=== PATIENT | male | born 1935 | race Caucasian/White ===

== ENCOUNTER 2016-08-29 10:40 | Inpatient (IN) | payer MEDICARE, BC ==
[~2016-08-29] VITALS: Ht 180.3 cm; Wt 74.2 kg
[~2016-08-29 10:40] MED LIST: DILT180C59 PO; LOSA100T6 PO; OMEP20CA9 PO; POTA20PA PO; SIMV20TA3 PO; TRIA1TAB3; VIT52OIL3; WARF7.5T6
[2016-08-29] MEDS ORDERED: DILTIAZEM 5 MG/ML, 5ML ONE (11:43)
[2016-08-29] MEDS ORDERED: SODIUM CHLORIDE FLUSH 10ML SYR IVF ONE (12:00)
[2016-08-29] MEDS ORDERED: DILTIAZEM 5 MG/ML, 5ML IV ONE (12:00)
[2016-08-29 12:07] LABS: BLOOD UREA NITROGEN 11 mg/dL (7-18)
[2016-08-29] MEDS ORDERED: RIVA20TA PO (12:22)
[2016-08-29] MEDS ORDERED: viteyes (12:22)
[2016-08-29 12:31] LABS: IS PT STATUS REG ER OR PRE ER? YES
[2016-08-29] MEDS ORDERED: POTASSIUM CHLORIDE 20 MEQ TAB.ER.PRT ONE (12:53)
[2016-08-29] MEDS ORDERED: POTASSIUM CHLORIDE 20 MEQ TAB.ER.PRT PO ONE (13:00)
[2016-08-29] MEDS ORDERED: SODIUM CHLORIDE FLUSH 10ML SYR IVF PRN (14:00)
[2016-08-29 16:00] VITALS: BP 124/85
[2016-08-29] MEDS ORDERED: ONDANSETRON 2MG/ML, 2ML IVPush PRN (17:30)
[2016-08-29] MEDS ORDERED: PROMETHAZINE 25 MG/ML, 1ML IM PRN (17:30)
[2016-08-29] MEDS ORDERED: ACETAMINOPHEN 325 MG TABLET PO PRN (17:30)
[2016-08-29] MEDS ORDERED: DIAZEPAM 2 MG TABLET PO PRN (17:30)
[2016-08-29] MEDS ORDERED: ENOXAPARIN 40 MG/0.4 ML SQ SCH (18:30)
[2016-08-29 18:57] LABS: IS PT STATUS REG ER OR PRE ER? NO
[2016-08-29] MEDS ORDERED: DILTIAZEM HCL 180 MG PO SCH (21:00)
[2016-08-29] MEDS ORDERED: SIMVASTATIN 20 MG TABLET PO SCH (21:00)
[2016-08-29] MEDS ORDERED: DILTIAZEM 90 MG CAP.ER.12H PO SCH (21:00)
[2016-08-29 21:10] VITALS: BP 125/81
[2016-08-29] MEDS: POTASSIUM CHLORIDE 20 MEQ PACKET PO SCH (21:40)
[2016-08-29] MEDS: DILTIAZEM 60 MG CAP.ER.12H PO SCH (22:29)
[2016-08-30 00:03] LABS: IS PT STATUS REG ER OR PRE ER? NO
[2016-08-30 01:58] VITALS: BP 128/80
[2016-08-30 06:37] LABS: ASPARTATE AMINO TRANSFERASE 9 U/L (15-37); BLOOD UREA NITROGEN 18 mg/dL (7-18)
[2016-08-30 07:11] VITALS: BP 122/74
[2016-08-30] MEDS ORDERED: OMEPRAZOLE 20 MG CAPSULE.DR PO SCH ×2 (07:30→09:00)
[2016-08-30] MEDS ORDERED: REGADENOSON 0.4 MG/5 ML SYRINGE ONE (07:52)
[2016-08-30] MEDS ORDERED: POTASSIUM CHLORIDE 20 MEQ TAB.ER.PRT PO SCH (08:00)
[2016-08-30] MEDS ORDERED: TRIAMTERENE-HCTZ 37.5/25 MG TABLET PO SCH (09:00)
[2016-08-30] MEDS ORDERED: RIVAROXABAN 20 MG TABLET PO SCH (09:00)
[2016-08-30 10:09] VITALS: BP 126/77
[2016-08-30] MEDS: DILTIAZEM 60 MG CAP.ER.12H PO SCH (10:10)
[2016-08-30] MEDS: POTASSIUM CHLORIDE 20 MEQ PACKET PO SCH (10:11)
[2016-08-30] MEDS ORDERED: MECL-76 PO (13:46)
[2016-08-30] MEDS ORDERED: METH4TAB2 PO (13:46)
[2016-08-30 14:42] VITALS: BP 113/77
== END 2016-08-30 16:00 | disposition home or self-care (01) | DRG 392 ==
LOC: ED 13:30 → EDIP 13:31 → ED 13:45 → 5SO 15:21 → DCLOUNGE 08-30 15:43
PROVIDERS: ADMIT Internal Medicine; ATTEND Internal Medicine
DX: K21.9 Gastro-esophageal reflux disease without esophagitis (principal); D68.69 Other thrombophilia; I48.2 Chronic atrial fibrillation; E87.6 Hypokalemia; I10 Essential (primary) hypertension; H81.10 Benign paroxysmal vertigo, unspecified ear; E78.5 Hyperlipidemia, unspecified; H83.09 Labyrinthitis, unspecified ear; N40.0 Benign prostatic hyperplasia without lower urinary tract symptoms; Z79.01 Long term (current) use of anticoagulants; Z79.899 Other long term (current) drug therapy
CPT/HCPCS: 36415; 70450; 70551; 71010; 78452; 80048; 80053; 80061; 82040; 83735; 84443; 84484; 85025; 93005; 93017; 93306; 96374; J1650; J2785; A9502; C9898

== ENCOUNTER 2018-09-26 09:45 | Emergency (ER) | payer MEDICARE, BC ==
[~2018-09-26] VITALS: Ht 177.8 cm; Wt 76.0 kg
[~2018-09-26 09:45] MED LIST changes: +LOSA100T14 PO; -LOSA100T6 PO; +MECL-76 PO; +METH4TAB2 PO; -POTA20PA PO; +POTA20PA31 PO; +RIVA20TA PO; +WARF7.5T46; -WARF7.5T6; +viteyes
[2018-09-26 10:38] LABS: BASOPHILS # (AUTO) 0.03 x10^3/uL (0-0.1); BASOPHILS % (AUTO) 1 % (0-1); EOSINOPHILS # (AUTO) 0.13 x10^3/uL (0-0.4); EOSINOPHILS % (AUTO) 2 % (1-7); LYMPHOCYTES # (AUTO) 1.52 x10^3/uL (1-3.4); LYMPHOCYTES % (AUTO) 26 % (22-44); MD NO; MEAN CORPUSCULAR HEMOGLOBIN 30.7 pg (27.5-34.5); MEAN CORPUSCULAR HGB CONC 33.4 g/dL (33.2-36.2); MEAN PLATELET VOLUME 9.2 fL (7.4-10.4); MONOCYTES # (AUTO) 0.57 x10^3/uL (0.2-0.8); MONOCYTES % (AUTO) 10 % (2-9); NEUTROPHILS # (AUTO) 3.69 x10^3/uL (1.8-6.8); NEUTROPHILS % (AUTO) 62 % (42-75); PLATELET COUNT 141 x10^3/uL (130-400); RED BLOOD COUNT 5.07 x10^6/uL (4.38-5.82); RED CELL DISTRIBUTION WIDTH 13.7 % (9.4-14.8)
--- NOTE | 2018-09-26 10:41 | NUR ---
PT RESTING IN GURNEY WITH AT BEDSIDE, NO NEEDS AT THIS TIME. CALL LIGHT WITHIN REACH. AWAITING LAB AND RAD RESULTS
[2018-09-26 10:49] LABS: ALBUMIN 3.4 g/dL (3.4-5.0); ANION GAP 4 mmol/L (5-15); CHLORIDE 108 mmol/L (98-107); CREATININE 0.88 mg/dL (0.7-1.3); INTERNATIONAL NORMALIZED RATIO 1.15 (0.93-1.1)
[2018-09-26 10:54] LABS: MICROSCOPIC INDICATED
[2018-09-26 11:05] LABS: CULTURE INDICATED? YES
--- NOTE | 2018-09-26 11:10 | NUR ---
PT TO CT
[2018-09-26] MEDS ORDERED: OMNIPAQUE 350 MG/ML, 100ML BOTTLE ONE (11:22)
--- NOTE | 2018-09-26 11:46 | NUR ---
PT RESTING IN RCHANDLER, BLANKET PROVIDED. CALL LIGHT WITHIN REACH. PT UP FOR RECHECK
[2018-09-26 12:54] VITALS: BP 168/98
== END 2018-09-26 12:56 | disposition home or self-care (01) ==
LOC: ED 11:50
DX: N20.1 Calculus of ureter (principal); I48.91 Unspecified atrial fibrillation
CPT/HCPCS: 36415; 74177; 80048; 81001; 82040; 85025; 85610; 85730; 87086; 99284; Q9967

== ENCOUNTER 2018-10-12 12:11 | Emergency (ER) | payer MEDICARE, BC ==
[~2018-10-12] VITALS: Ht 180.3 cm; Wt 75.0 kg
--- NOTE | 2018-10-12 12:57 | NUR ---
BLADDER SCAN OF 648ML-PROVIDER MADE AWARE- PLAN TO PLACE INDWELLING PONCE
[2018-10-12] MEDS ORDERED: LIDOCAINE 2%,20 ML JEL.PF.APP MM ONE ×2 (13:00→13:24)
--- NOTE | 2018-10-12 13:05 | NUR ---
COLLEGUE ATTEMPETED CATHERIZATION X 1 W/ 16F UNABLE TO PASS PROSTATE
[2018-10-12 13:20] LABS: BASOPHILS # (AUTO) 0.03 x10^3/uL (0-0.1); BASOPHILS % (AUTO) 1 % (0-1); EOSINOPHILS # (AUTO) 0.15 x10^3/uL (0-0.4); EOSINOPHILS % (AUTO) 2 % (1-7); LYMPHOCYTES # (AUTO) 1.68 x10^3/uL (1-3.4); LYMPHOCYTES % (AUTO) 27 % (22-44); MD NO; MEAN CORPUSCULAR HEMOGLOBIN 31.5 pg (27.5-34.5); MEAN CORPUSCULAR HGB CONC 33.4 g/dL (33.2-36.2); MEAN CORPUSCULAR VOLUME 94.4 fL (81-97); MEAN PLATELET VOLUME 9.1 fL (7.4-10.4); MONOCYTES # (AUTO) 0.52 x10^3/uL (0.2-0.8); MONOCYTES % (AUTO) 8 % (2-9); NEUTROPHILS # (AUTO) 3.88 x10^3/uL (1.8-6.8); NEUTROPHILS % (AUTO) 62 % (42-75); PLATELET COUNT 165 x10^3/uL (130-400); RED BLOOD COUNT 5.28 x10^6/uL (4.38-5.82); RED CELL DISTRIBUTION WIDTH 13.6 % (9.4-14.8)
--- NOTE | 2018-10-12 13:26 | NUR ---
MEDICATED PER EMAAllie W/ TODT
[2018-10-12 13:27] LABS: ALBUMIN 3.7 g/dL (3.4-5.0); ANION GAP 9 mmol/L (5-15); CALCIUM 9.6 mg/dL (8.5-10.1); CHLORIDE 108 mmol/L (98-107); CREATININE 1.06 mg/dL (0.7-1.3)
--- NOTE | 2018-10-12 13:40 | NUR ---
REPLENISHMENT SPECIALIST UNABLE TO INSER 12F COUDE (SIGNIFICANT PROSTATE RESISTANCE). PATIENT QUITE TENSE. REPLENISHMENT SPECIALIST ABORTED ATTEMPT TO ASK PROVIDE FOR PAIN MEDICATION AND REATTEMPT
[2018-10-12] MEDS ORDERED: FENTANYL PF 100 MCG/2ML ONE (13:43)
[2018-10-12] MEDS ORDERED: FENTANYL PF 100 MCG/2ML IVPush PRN ×2 (14:00→14:30)
--- NOTE | 2018-10-12 14:01 | NUR ---
MEDICATED PER EMAR
--- NOTE | 2018-10-12 14:05 | NUR ---
RIGHT PIV PLACED-VSS ON AUTOMATIC CLIPPER (REMAINS ON 5L OXYMASK PRECAUTION D/T NARCOTICS)
--- NOTE | 2018-10-12 14:10 | NUR ---
CLARIFYING PLANT OPERATOR UNABLE TO INSERT 10F PONCE EVEN AFTER MEDICATION TO RELIEVE TENSION. AGAIN COMPLETE OCCLUSION AT ABOUT 75% OF USUAL INSERTION DEPTH ER PROVIDER MADE AWARE OF NEED FOR UROLOGY VSS ON COMMISSIONED SECURITY OFFICER (ON 5L OXYMASK PRECAUTION D/T NARCOTCS)
--- NOTE | 2018-10-12 14:22 | NUR ---
paged dr albrecht for dr garcia
--- NOTE | 2018-10-12 14:35 | NUR ---
UROLOGY CART TO BEDSIDE POC REVIEWED WITH PROVIDER: UROLOGIST TO ARRIVE BY [id number]- THEREFORE WHILE WE WAIT FOR UROLOGIST MEDICATE FURTHER FOR PAIN-OBTAIN & CT SCAN
[2018-10-12] MEDS ORDERED: HYDROmorphone 1 MG/ML, 1ML VIAL ONE (14:37)
--- NOTE | 2018-10-12 14:45 | NUR ---
MEDICATED PER EMAR FOR CONTINUED PAIN RATE AT 12/18 REPEAT BLADDER SCAN 650ML AT 1440P TO CT SCAN AT 1448
--- NOTE | 2018-10-12 14:59 | NUR ---
PT REPORT FROM NOBLE VERONICA; UROLOGY WAS CALLED FOR PONCE PLACEMENT. PT CURRENTLY IN CT.
[2018-10-12] MEDS ORDERED: HYDROmorphone 2 MG/ML, 1ML IVPush PRN (15:00)
--- NOTE | 2018-10-12 15:00 | NUR ---
REPORT TO MATTEO DICKEY
[2018-10-12] MEDS ORDERED: IMIQ1CRE TD (15:03)
[2018-10-12] MEDS ORDERED: AMLO10TA8 PO (15:03)
[2018-10-12] MEDS ORDERED: LISI-170 PO (15:03)
[2018-10-12] MEDS ORDERED: TIMO5DRO8 OP (15:03)
[2018-10-12] MEDS ORDERED: DOXA2TAB9 PO (15:03)
[2018-10-12] MEDS ORDERED: AZEL205.2 NAS (15:03)
[2018-10-12] MEDS ORDERED: LATA7.5D OP (15:03)
--- NOTE | 2018-10-12 15:36 | NUR ---
PT IN ROOM. DR HUERTA BS. PT A&OX4, RESP EVEN & UNLABORED, SPEECH CLEAR, SKIN WNL. PT'S SPOUSE IN ROOM.
--- NOTE | 2018-10-12 15:45 | NUR ---
THIS RN ASSISTING DR HUERTA WITH UROLOGY PROCEDURE.
--- NOTE | 2018-10-12 16:15 | NUR ---
PT TOLERATED PROCEDURE WELL. 18FR COUDAE TIP CATHETER INSERTED PER DR HUERTA. LIGHT BLOOD-TINGED URINE RETURNED. PT DENIES PAIN CURRENTLY. SPOUSE IN ROOM
--- NOTE | 2018-10-12 16:35 | NUR ---
URINE SPECIMEN NOT SENT BY INITIAL RN. WILL OBTAIN SPECIMEN & WALK IT TO LAB.
--- NOTE | 2018-10-12 17:13 | NUR ---
PONCE UA SPECIMEN OBTAINED: CLEAR, LIGHT PINK. SPECIMEN WILL BE SENT TO LAB. PT RESTING COMFORTABLY, DENIES PAIN, MONITORING CONTINUING. SIDE RAILS UP X2, CALL LIGHT W/IN REACH. SPOUSE IN ROOM.
[2018-10-12 17:33] LABS: MICROSCOPIC AUTO
[2018-10-12 17:36] LABS: CULTURE INDICATED? NO
--- NOTE | 2018-10-12 18:21 | NUR ---
ASSUMED CARE OF PT WHILE PRIMARY RN AT LUNCH. PT INSTRUCTED TO CHANGE LEG BAG AND EMPTY PONCE. PT VERBALIZED UNDERSTANDING.
[2018-10-12 18:25] VITALS: BP 124/74
== END 2018-10-12 18:29 | disposition home or self-care (01) ==
LOC: ED 15:28
DX: R33.9 Retention of urine, unspecified (principal); R10.30 Lower abdominal pain, unspecified; I48.91 Unspecified atrial fibrillation
CPT/HCPCS: 36415; 51702; 74176; 80048; 81001; 82040; 85025; 96374; 96375; 99284; J1170; J3010

== ENCOUNTER 2019-04-08 14:51 | Observation (INO) | payer MEDICARE, BC ==
[~2019-04-08] VITALS: Ht 180.3 cm; Wt 72.7 kg
[~2019-04-08 14:51] MED LIST changes: +AMLO10TA8 PO; +AZEL205.2 NAS; +DOXA2TAB9 PO; +IMIQ1CRE TD; +LATA7.5D OP; +LISI-170 PO; +SIMV20TA19 PO; -SIMV20TA3 PO; +TIMO5DRO8 OP
[2019-04-08] MEDS ORDERED: DILTIAZEM 5 MG/ML, 5ML IV ONE (15:30)
[2019-04-08 15:34] LABS: BASOPHILS # (AUTO) 0.02 x10^3/uL (0-0.1); BASOPHILS % (AUTO) 0 % (0-1); EOSINOPHILS # (AUTO) 0.18 x10^3/uL (0-0.4); EOSINOPHILS % (AUTO) 3 % (1-7); LYMPHOCYTES # (AUTO) 1.47 x10^3/uL (1-3.4); LYMPHOCYTES % (AUTO) 24 % (22-44); MD NO; MEAN CORPUSCULAR HGB CONC 33.2 g/dL (33.2-36.2); MEAN CORPUSCULAR VOLUME 93.5 fL (81-97); MEAN PLATELET VOLUME 8.9 fL (7.4-10.4); MONOCYTES # (AUTO) 0.51 x10^3/uL (0.2-0.8); MONOCYTES % (AUTO) 8 % (2-9); NEUTROPHILS # (AUTO) 4.01 x10^3/uL (1.8-6.8); NEUTROPHILS % (AUTO) 65 % (42-75); PLATELET COUNT 167 x10^3/uL (130-400); RED BLOOD COUNT 5.39 x10^6/uL (4.38-5.82); RED CELL DISTRIBUTION WIDTH 13.6 % (9.4-14.8)
[2019-04-08] MEDS ORDERED: DILTIAZEM 5 MG/ML, 10ML ONE (15:37)
[2019-04-08] MEDS: DILTIAZEM 125 MG in SODIUM CHLORIDE 0.9% 100 ML IV SCH (15:39)
[2019-04-08 15:44] LABS: ALBUMIN 3.7 g/dL (3.4-5.0); ANION GAP 5 mmol/L (5-15); CALCIUM 9.3 mg/dL (8.5-10.1); CHLORIDE 110 mmol/L (98-107)
[2019-04-08 15:48] LABS: TROPONIN I < 0.015 ng/mL (0.000-0.045)
--- NOTE | 2019-04-08 16:04 | NUR ---
DILTIAZEM INFUSING NOTED ON MAY. PT RESTING WITH EYES CLOSED
[2019-04-08] MEDS ORDERED: METO200T47 PO (16:11)
[2019-04-08] MEDS ORDERED: ONDANSETRON 2MG/ML, 2ML IVPush PRN (17:00)
[2019-04-08] MEDS ORDERED: BISACODYL 10 MG SUPP PR PRN (17:00)
[2019-04-08] MEDS ORDERED: PROMETHAZINE 25 MG/ML, 1ML IM PRN (17:00)
[2019-04-08] MEDS ORDERED: ACETAMINOPHEN 325 MG TABLET PO PRN (17:00)
[2019-04-08] MEDS ORDERED: NITROGLYCERIN 0.4 MG BOTTLE (25 TABS) SL PRN (17:00)
[2019-04-08] MEDS ORDERED: POLYETHYLENE GLYCOL 17 GM PACKET PO PRN (17:00)
[2019-04-08] MEDS ORDERED: POTASSIUM CHLORIDE 20 MEQ TAB.ER.PRT PO ONE (17:00)
[2019-04-08] MEDS ORDERED: DILTIAZEM 5 MG/ML, 5ML IVPush PRN (17:00)
[2019-04-08] MEDS ORDERED: NITROGLYCERIN 0.4 MG/SPRAY SL PRN (17:00)
[2019-04-08] MEDS ORDERED: DOCUSATE 100 MG CAPSULE PO PRN (17:00)
--- NOTE | 2019-04-08 17:16 | NUR ---
REPORT TO ELECTRONIC WARFARE SPECIALIST. PT TO BE TRANSPORTED TO THE FLOOR
[2019-04-08 17:43] VITALS: BP 142/97
[2019-04-08 20:23] VITALS: BP 124/86
[2019-04-08] MEDS ORDERED: SIMVASTATIN 10 MG TABLET PO SCH (21:00)
[2019-04-08 23:24] LABS: TROPONIN I < 0.015 ng/mL (0.000-0.045)
[2019-04-09] MEDS: DILTIAZEM 125 MG in SODIUM CHLORIDE 0.9% 100 ML IV SCH (01:53)
[2019-04-09 02:33] VITALS: BP 128/82
[2019-04-09 04:16] LABS: BASOPHILS # (AUTO) 0.03 x10^3/uL (0-0.1); BASOPHILS % (AUTO) 1 % (0-1); EOSINOPHILS # (AUTO) 0.25 x10^3/uL (0-0.4); EOSINOPHILS % (AUTO) 4 % (1-7); LYMPHOCYTES # (AUTO) 1.76 x10^3/uL (1-3.4); LYMPHOCYTES % (AUTO) 28 % (22-44); MD NO; MEAN CORPUSCULAR HEMOGLOBIN 30.7 pg (27.5-34.5); MEAN CORPUSCULAR HGB CONC 33.1 g/dL (33.2-36.2); MEAN CORPUSCULAR VOLUME 92.7 fL (81-97); MEAN PLATELET VOLUME 9.5 fL (7.4-10.4); MONOCYTES # (AUTO) 0.56 x10^3/uL (0.2-0.8); MONOCYTES % (AUTO) 9 % (2-9); NEUTROPHILS # (AUTO) 3.66 x10^3/uL (1.8-6.8); NEUTROPHILS % (AUTO) 58 % (42-75); PLATELET COUNT 141 x10^3/uL (130-400); RED CELL DISTRIBUTION WIDTH 14.1 % (9.4-14.8)
[2019-04-09 04:27] LABS: ALBUMIN 3.2 g/dL (3.4-5.0); ANION GAP 5 mmol/L (5-15); CALCIUM 8.9 mg/dL (8.5-10.1); CHLORIDE 111 mmol/L (98-107)
[2019-04-09 04:33] LABS: ALANINE AMINOTRANSFERASE 19 U/L (12-78); ALKALINE PHOSPHATASE 54 U/L (45-117); BILIRUBIN,TOTAL 0.7 mg/dL (0.2-1.0); CREATININE 0.95 mg/dL (0.7-1.3); TROPONIN I < 0.015 ng/mL (0.000-0.045)
[2019-04-09 05:18] VITALS: BP 119/82
[2019-04-09] MEDS ORDERED: METOPROLOL SUCCINATE 25 MG TAB.ER.24H PO SCH (06:00)
[2019-04-09 07:05] VITALS: BP 126/84
[2019-04-09] MEDS ORDERED: REGADENOSON 0.4 MG/5 ML SYRINGE ONE (08:37)
[2019-04-09] MEDS ORDERED: TIMOLOL OPHTH 0.25%, 5ML OP SCH (09:00)
[2019-04-09] MEDS ORDERED: POTASSIUM CHLORIDE 20 MEQ TAB.ER.PRT PO ONE (09:00)
[2019-04-09] MEDS ORDERED: DOXAZOSIN 2MG TABLET PO SCH (09:00)
[2019-04-09] MEDS ORDERED: OMEPRAZOLE 20 MG CAPSULE.DR PO SCH (09:00)
[2019-04-09] MEDS ORDERED: RIVAROXABAN 20 MG TABLET PO SCH (09:00)
[2019-04-09] MEDS ORDERED: LISINOPRIL 20 MG TABLET PO SCH (09:00)
[2019-04-09] MEDS ORDERED: METOPROLOL SUCCINATE 25 MG TAB.ER.24H PO ONE (09:00)
[2019-04-09] MEDS ORDERED: LATANOPROST OPHTH 0.005%, 2.5ML OP SCH (09:00)
[2019-04-09 13:07] VITALS: BP 131/91
[2019-04-09] MEDS ORDERED: PROPOFOL 10 MG/ML, 20ML ONE (13:33)
[2019-04-09] MEDS ORDERED: METO-93 PO (15:02)
[2019-04-10] MEDS ORDERED: METOPROLOL SUCCINATE 50 MG TAB.ER.24H PO SCH (06:00)
== END 2019-04-09 16:37 | disposition home or self-care (01) ==
LOC: SUATTDRO 16:22 → ED 16:33 → EDIP 16:34 → ED 17:09 → 5SO 18:09 → DCLOUNGE 04-09 16:31
PROVIDERS: ADMIT Internal Medicine; ATTEND Hospitalist
DX: I48.20 Chronic atrial fibrillation, unspecified (principal); R07.9 Chest pain, unspecified; E87.6 Hypokalemia; I10 Essential (primary) hypertension; D68.69 Other thrombophilia; E78.5 Hyperlipidemia, unspecified; K21.9 Gastro-esophageal reflux disease without esophagitis; R42 Dizziness and giddiness; N20.0 Calculus of kidney; H40.9 Unspecified glaucoma; N40.0 Benign prostatic hyperplasia without lower urinary tract symptoms; I48.0 Paroxysmal atrial fibrillation; Z79.899 Other long term (current) drug therapy; Z79.01 Long term (current) use of anticoagulants; Z87.442 Personal history of urinary calculi; Z86.73 Personal history of transient ischemic attack (TIA), and cerebral infarction without residual deficits
CPT/HCPCS: 36415; 71045; 78452; 80048; 80053; 82040; 83735; 84443; 84484; 85025; 93005; 93017; 93306; 96365; 96366; 96376; 99284; A9502; G0378; J2704; J2785; 96375

== ENCOUNTER 2019-12-25 11:02 | Inpatient (IN) | payer MEDICARE, BC ==
[~2019-12-25] VITALS: Ht 177.8 cm; Wt 70.0 kg
[~2019-12-25 11:02] MED LIST changes: +ASPI-650 PO; +METO-93 PO; +METO200T47 PO
--- NOTE | 2019-12-25 11:28 | NUR ---
PT REPORTS BEING SEEN IN [facility] LAST NIGHT AND WAS TOLD "THERE'S FLUID ON THE LUNGS". WAS REF TO ED HOWEVER PT WANTED TO GO HOME.
--- NOTE | 2019-12-25 11:28 | NUR ---
THIS IS A 84 YO M W/ C/O CPX5 DAYS, SOBX3 DAYS, URINARY FREQUENCYX3 DAYS. PT REPORTS SX X3 WEEKS AGO FOR AAA REPAIR. PT HYPERTENSIVE, OTHER VS WDL. PT RESTING ON GURNEY W/ CALL LIGHT IN REACH, SIDE RAILS UPX2 AND FAMILY AT BEDSIDE. NADN. AWAITING ED EVAL. Addendum: 12/25/19 at 1133 by [email or web address] THIS IS A 84 YO M W/ C/O CPX5 DAYS, SOBX3 DAYS, URINARY FREQUENCYX3 DAYS. PT REPORTS SX X3 WEEKS AGO FOR AAA REPAIR. PT HYPERTENSIVE AND TACHYPNEIC, OTHER VS WDL. PT RESTING ON GURNEY W/ CALL LIGHT IN REACH, SIDE RAILS UPX2 AND FAMILY AT BEDSIDE. NADN. AWAITING ED EVAL.
--- NOTE | 2019-12-25 11:57 | NUR ---
SREE [phone] WOULD LIKE UPDATES WHEN RESULTS ARE BACK.
--- NOTE | 2019-12-25 11:58 | NUR ---
LAB IN ROOM.
[2019-12-25 12:11] LABS: BASOPHILS % (AUTO) 1 % (0-1); EOSINOPHILS % (AUTO) 3 % (1-7); LYMPHOCYTES % (AUTO) 12 % (22-44); MEAN CORPUSCULAR HEMOGLOBIN 30.2 pg (27.5-34.5); MEAN CORPUSCULAR HGB CONC 33.2 g/dL (33.2-36.2); MEAN PLATELET VOLUME 8.2 fL (7.4-10.4); MONOCYTES % (AUTO) 9 % (2-9); NEUTROPHILS % (AUTO) 75 % (42-75); PLATELET COUNT 228 x10^3/uL (130-400); RED BLOOD COUNT 4.27 x10^6/uL (4.38-5.82); RED CELL DISTRIBUTION WIDTH 15.3 % (9.4-14.8)
--- NOTE | 2019-12-25 12:15 | NUR ---
RAD IN ROOM.
--- NOTE | 2019-12-25 12:15 | NUR ---
PT HAD 100ML OUTPUT INTO URINAL. POST RESIDUAL VOID 192ML.
[2019-12-25 12:18] LABS: MD NO
[2019-12-25 12:21] LABS: ALANINE AMINOTRANSFERASE 23 U/L (12-78); ALBUMIN 2.9 g/dL (3.4-5.0); ANION GAP 5 mmol/L (5-15); CALCIUM 9.6 mg/dL (8.5-10.1); CHLORIDE 110 mmol/L (98-107)
[2019-12-25 12:23] LABS: CREATININE 0.95 mg/dL (0.7-1.3)
[2019-12-25 12:24] LABS: ALKALINE PHOSPHATASE 98 U/L (45-117); BILIRUBIN,TOTAL 0.6 mg/dL (0.2-1.0); TOTAL PROTEIN 6.2 g/dL (6.4-8.2)
[2019-12-25 12:35] LABS: MICROSCOPIC NOT IND
--- NOTE | 2019-12-25 12:44 | NUR ---
PT PROVIDED W/ WATER, OK PER .
--- NOTE | 2019-12-25 12:45 | NUR ---
ALL TESTS RESULTED. PT IS UP FOR RECHECK AT THIS TIME.
[2019-12-25] MEDS ORDERED: POTASSIUM CHLORIDE 20 MEQ TAB.ER.PRT ONE (12:49)
--- NOTE | 2019-12-25 12:54 | NUR ---
PT SWALLOWED MEDS W/O INCIDENT. PT RESTING ON GURNEY W/ CALL LIGHT IN REACH AND FAMILY AT BEDSIDE. PT TACHYPNEIC, OTHER VS WDL. NADN.
[2019-12-25] MEDS ORDERED: POTASSIUM CHLORIDE 20 MEQ TAB.ER.PRT PO ONE (13:00)
--- NOTE | 2019-12-25 13:30 | NUR ---
PIV STARTED. PT UPDATED ON POC FOR ADMIT.
--- NOTE | 2019-12-25 13:31 | NUR ---
PT RESTING ON GURNEY W/ CALL LIGHT IN REACH AND FAMILY AT BEDSIDE, NADN. AWAITING TROPONIN RESULTS.
--- NOTE | 2019-12-25 13:35 | NUR ---
AT BEDSIDE FOR RECHECK.
--- NOTE | 2019-12-25 13:58 | NUR ---
[facility] ([facility]) [phone]
--- NOTE | 2019-12-25 14:13 | NUR ---
REPORT GIVEN TO ANDRÉS DICKEY. PT IS READY FOR TRANSPORT ONCE RETURNS W/ PT MEDS. BREAK RN AWARE.
--- NOTE | 2019-12-25 15:01 | NUR ---
TELEPHONE CALL FROM . SHE STATES SHE WANTS PT TO REMAIN IN ED UNTIL CTA IS RESULTED.
--- NOTE | 2019-12-25 15:12 | NUR ---
PT IN CT.
[2019-12-25] MEDS ORDERED: OMNIPAQUE 350 MG/ML, 100ML BOTTLE ONE (15:15)
--- NOTE | 2019-12-25 15:40 | NUR ---
TELEPHONE CALL TO REGARDING CTA RESULTS, OKAY TO GO TO FLOOR NOW.
--- NOTE | 2019-12-25 16:00 | NUR ---
SON UPDATED ON PTS ROOM ASSIGNMENT AND TRANSFER.
[2019-12-25] MEDS ORDERED: ONDANSETRON ODT 4 MG PO PRN (16:30)
[2019-12-25] MEDS ORDERED: BISACODYL 10 MG SUPP PR PRN (16:30)
[2019-12-25] MEDS ORDERED: POLYETHYLENE GLYCOL 17 GM PACKET PO PRN (16:30)
[2019-12-25] MEDS ORDERED: ACETAMINOPHEN 325 MG TABLET PO PRN (16:30)
[2019-12-25] MEDS ORDERED: morphine SULFATE 10 MG/ML, 1ML IVPush PRN (16:30)
[2019-12-25] MEDS ORDERED: MELATONIN 5 MG TABLET PO PRN (16:30)
[2019-12-25 17:05] VITALS: BP 197/92
[2019-12-25] MEDS: RIVAROXABAN 20 MG TABLET PO SCH (17:18)
[2019-12-25] MEDS: FUROSEMIDE 20 MG TABLET PO SCH (17:18)
[2019-12-25 17:23] VITALS: BP 207/91
[2019-12-25 18:16] VITALS: BP 167/84
[2019-12-25 18:52] VITALS: BP 175/87
[2019-12-25] MEDS: COLCHICINE 0.6 MG CAPSULE PO SCH (21:25)
[2019-12-25] MEDS: SIMVASTATIN 20 MG TABLET PO SCH (21:26)
[2019-12-26 00:31] VITALS: BP 172/84
[2019-12-26 02:01] VITALS: BP 126/90
[2019-12-26] MEDS ORDERED: METOPROLOL 1 MG/ML, 5ML IVPush STA (03:32)
[2019-12-26] MEDS ORDERED: METOPROLOL SUCCINATE 50 MG TAB.ER.24H ONE (03:45)
[2019-12-26] MEDS: METOPROLOL SUCCINATE 50 MG TAB.ER.24H PO SCH (03:49)
[2019-12-26 04:39] LABS: BASOPHILS % (AUTO) 1 % (0-1); EOSINOPHILS % (AUTO) 4 % (1-7); LYMPHOCYTES % (AUTO) 17 % (22-44); MEAN CORPUSCULAR HEMOGLOBIN 29.9 pg (27.5-34.5); MEAN PLATELET VOLUME 8.2 fL (7.4-10.4); MONOCYTES % (AUTO) 11 % (2-9); NEUTROPHILS % (AUTO) 66 % (42-75); PLATELET COUNT 261 x10^3/uL (130-400); RED BLOOD COUNT 4.53 x10^6/uL (4.38-5.82); RED CELL DISTRIBUTION WIDTH 15.3 % (9.4-14.8)
[2019-12-26 04:50] LABS: MD NO
[2019-12-26 04:53] LABS: ALANINE AMINOTRANSFERASE 25 U/L (12-78); ALBUMIN 2.9 g/dL (3.4-5.0); ANION GAP 7 mmol/L (5-15); CALCIUM 9.2 mg/dL (8.5-10.1); CHLORIDE 108 mmol/L (98-107); CREATININE 0.66 mg/dL (0.7-1.3)
[2019-12-26 04:55] LABS: ALKALINE PHOSPHATASE 98 U/L (45-117); BILIRUBIN,TOTAL 0.7 mg/dL (0.2-1.0); TOTAL PROTEIN 6.2 g/dL (6.4-8.2)
[2019-12-26 06:58] VITALS: BP 119/73
[2019-12-26 08:49] LABS: TROPONIN I 0.054 ng/mL (0.000-0.045)
[2019-12-26] MEDS: COLCHICINE 0.6 MG CAPSULE PO SCH ×2 (09:29→20:12)
[2019-12-26] MEDS: POLYETHYLENE GLYCOL 17 GM PACKET PO SCH (09:29)
[2019-12-26] MEDS: OMEPRAZOLE 20 MG CAPSULE.DR PO SCH (09:29)
[2019-12-26] MEDS: LISINOPRIL 20 MG TABLET PO SCH (09:29)
[2019-12-26] MEDS: AMLODIPINE 2.5 MG TABLET PO SCH (09:29)
[2019-12-26] MEDS: SENNA/DOCUSATE TABLET PO SCH (09:30)
[2019-12-26] MEDS: FUROSEMIDE 20 MG TABLET PO SCH ×2 (09:30→17:23)
[2019-12-26] MEDS: DOXAZOSIN 2MG TABLET PO SCH (10:00)
[2019-12-26] MEDS: POTASSIUM CHLORIDE 20 MEQ TAB.ER.PRT PO SCH ×3 (10:00→20:12)
[2019-12-26 13:59] VITALS: BP 101/65
[2019-12-26 17:11] LABS: BASOPHILS % (AUTO) 1 % (0-1); EOSINOPHILS % (AUTO) 3 % (1-7); LYMPHOCYTES % (AUTO) 16 % (22-44); MEAN CORPUSCULAR HEMOGLOBIN 29.6 pg (27.5-34.5); MEAN CORPUSCULAR HGB CONC 32.4 g/dL (33.2-36.2); MEAN PLATELET VOLUME 8.4 fL (7.4-10.4); MONOCYTES % (AUTO) 10 % (2-9); NEUTROPHILS % (AUTO) 70 % (42-75); PLATELET COUNT 236 x10^3/uL (130-400); RED BLOOD COUNT 4.33 x10^6/uL (4.38-5.82); RED CELL DISTRIBUTION WIDTH 15.4 % (9.4-14.8)
[2019-12-26 17:12] LABS: MD NO
[2019-12-26 17:15] LABS: ANION GAP 7 mmol/L (5-15); CALCIUM 9.4 mg/dL (8.5-10.1); CHLORIDE 109 mmol/L (98-107); CREATININE 0.98 mg/dL (0.7-1.3)
[2019-12-26] MEDS: LATANOPROST OPHTH 0.005%, 2.5ML OP SCH (17:23)
[2019-12-26] MEDS: RIVAROXABAN 20 MG TABLET PO SCH (17:23)
[2019-12-26] MEDS: TIMOLOL OPHTH 0.25%, 5ML OP SCH (17:24)
[2019-12-26 19:54] VITALS: BP 101/65
[2019-12-26] MEDS: SIMVASTATIN 20 MG TABLET PO SCH (20:12)
[2019-12-27 02:20] VITALS: BP 170/88
[2019-12-27] MEDS: METOPROLOL SUCCINATE 50 MG TAB.ER.24H PO SCH (05:37)
[2019-12-27 07:48] VITALS: BP 126/63
[2019-12-27 07:49] VITALS: BP 112/70
[2019-12-27 07:50] VITALS: BP 106/69
[2019-12-27] MEDS: LATANOPROST OPHTH 0.005%, 2.5ML OP SCH (09:00)
[2019-12-27] MEDS ORDERED: TAMSULOSIN 0.4 MG CAP.ER.24H PO SCH (09:00)
[2019-12-27] MEDS: SENNA/DOCUSATE TABLET PO SCH (09:00)
[2019-12-27] MEDS: TIMOLOL OPHTH 0.25%, 5ML OP SCH (09:00)
[2019-12-27] MEDS: POLYETHYLENE GLYCOL 17 GM PACKET PO SCH (09:00)
[2019-12-27] MEDS: POTASSIUM CHLORIDE 20 MEQ TAB.ER.PRT PO SCH (10:59)
[2019-12-27] MEDS: LISINOPRIL 20 MG TABLET PO SCH (10:59)
[2019-12-27] MEDS: COLCHICINE 0.6 MG CAPSULE PO SCH (10:59)
[2019-12-27] MEDS: OMEPRAZOLE 20 MG CAPSULE.DR PO SCH (11:00)
[2019-12-27] MEDS: AMLODIPINE 2.5 MG TABLET PO SCH (11:00)
[2019-12-27] MEDS: FUROSEMIDE 20 MG TABLET PO SCH (11:00)
[2019-12-27] MEDS: DOXAZOSIN 2MG TABLET PO SCH (11:00)
[2019-12-27 11:02] VITALS: BP 138/75
[2019-12-27 12:18] VITALS: BP 138/79
[2019-12-27] MEDS ORDERED: COLC0.6C3 PO (12:52)
[2019-12-27] MEDS ORDERED: FURO20TA3 PO (12:52)
[2019-12-27 15:59] LABS: MICROSCOPIC INDICATED
== END 2019-12-27 17:06 | disposition short-term general hospital (02) | DRG 315 ==
LOC: ED 12:22 → EDIP 13:38 → 5SO 16:13
PROVIDERS: ADMIT Family Medicine; ATTEND Internal Medicine
DX: I31.3 Pericardial effusion (noninflammatory) (principal); I48.20 Chronic atrial fibrillation, unspecified; D64.9 Anemia, unspecified; E78.00 Pure hypercholesterolemia, unspecified; E78.5 Hyperlipidemia, unspecified; H40.9 Unspecified glaucoma; I10 Essential (primary) hypertension; I35.8 Other nonrheumatic aortic valve disorders; I44.5 Left posterior fascicular block; I48.0 Paroxysmal atrial fibrillation; N40.1 Benign prostatic hyperplasia with lower urinary tract symptoms; R33.8 Other retention of urine; Z66 Do not resuscitate; Z79.01 Long term (current) use of anticoagulants; Z86.79 Personal history of other diseases of the circulatory system; Z87.442 Personal history of urinary calculi; Z87.891 Personal history of nicotine dependence; Z90.79 Acquired absence of other genital organ(s)
CPT/HCPCS: 36415; 71045; 71275; 80048; 80053; 81001; 81003; 83605; 83735; 84484; 85025; 87040; 87086; 93005; 93306; 93308; 93321; 93325; G0378; Q9967

== ENCOUNTER 2020-01-03 00:51 | Emergency (ER) | payer MEDICARE, BC ==
[~2020-01-03] VITALS: Ht 177.8 cm; Wt 75.0 kg
[~2020-01-03 00:51] MED LIST changes: +COLC0.6C3 PO; +FURO20TA3 PO
--- NOTE | 2020-01-03 01:00 | NUR ---
BIB [facility] CO OF SOB, UNABLE TO TELL FOR HOW LONG HE HAS HAD SYMPTOMS. PT RECENTLY HOSPITALIZED FOR PERICARDIAL DRAINAGE AND AORTIC ANUERSYM. PT IS 94-97% RA. HEALING MIDLINE AND R UPPER CHEST SCAR NOTED ON SKIN, SKIN PINK, DRY, INTACT. L SURGICAL INCISION, CDI NO DRAINAGE NOTED. PT STATES HE HAS BEEN USING NASAL SPRAY VERY FREQUENTLY WELL. AT BEDSIDE.
[2020-01-03] MEDS ORDERED: IRON1TAB60 PO (01:31)
[2020-01-03] MEDS ORDERED: IMIQ1CRE TP (01:31)
[2020-01-03 01:35] LABS: BASOPHILS % (AUTO) 1 % (0-1); EOSINOPHILS % (AUTO) 4 % (1-7); LYMPHOCYTES % (AUTO) 21 % (22-44); MEAN CORPUSCULAR HEMOGLOBIN 29.7 pg (27.5-34.5); MEAN CORPUSCULAR HGB CONC 32.7 g/dL (33.2-36.2); MEAN PLATELET VOLUME 8.6 fL (7.4-10.4); MONOCYTES % (AUTO) 11 % (2-9); NEUTROPHILS % (AUTO) 64 % (42-75); PLATELET COUNT 163 x10^3/uL (130-400); RED BLOOD COUNT 4.54 x10^6/uL (4.38-5.82); RED CELL DISTRIBUTION WIDTH 15.2 % (9.4-14.8)
[2020-01-03 01:37] LABS: MD NO
[2020-01-03 01:44] LABS: ALBUMIN 2.7 g/dL (3.4-5.0); ANION GAP 4 mmol/L (5-15); CALCIUM 9.3 mg/dL (8.5-10.1); CHLORIDE 106 mmol/L (98-107); CREATININE 0.87 mg/dL (0.7-1.3)
[2020-01-03 01:48] LABS: TROPONIN I 0.076 ng/mL (0.000-0.045)
--- NOTE | 2020-01-03 02:37 | NUR ---
PT ANXIOUS IN ROOM, STATING HE FEELS LIKE HE IS HAVING A HARD TIME BREATHING. 02 SAT 97% RA. AT BEDSIDE
--- NOTE | 2020-01-03 03:02 | NUR ---
NOAH RN: ATTENDED PATIENT NEEDS.
[2020-01-03 04:00] VITALS: BP 127/76
--- NOTE | 2020-01-03 04:00 | NUR ---
RESTING COMFORTABLY. AT BEDSIDE
== END 2020-01-03 04:37 | disposition home or self-care (01) ==
LOC: ED 01:37
DX: R09.81 Nasal congestion (principal); T48.5X5A Adverse effect of other anti-common-cold drugs, initial encounter; R06.02 Shortness of breath; R07.9 Chest pain, unspecified; I45.10 Unspecified right bundle-branch block; E78.00 Pure hypercholesterolemia, unspecified; I48.91 Unspecified atrial fibrillation; I10 Essential (primary) hypertension; Y92.89 Other specified places as the place of occurrence of the external cause
CPT/HCPCS: 36415; 71045; 80048; 82040; 83880; 84484; 85025; 93005; 99285